=== PATIENT | female | born 1985 | race Caucasian/White ===

== ENCOUNTER 2023-04-14 15:22 | Outpatient (REF) | payer OTHER, SELFPAY ==
--- NOTE | ~2023-04-14 | US_ITS ---
EXAMINATION: US PELVIS CLINICAL INFORMATION: Lower abdominal pain; the last menstrual period was 2 weeks prior. COMPARISON: None available. TECHNIQUE: Ultrasound of the pelvis is performed using both transabdominal and transvaginal transducers along with Doppler. Transvaginal imaging is performed due to inadequate visualization transabdominally. FINDINGS: Uterus: The uterus is anteverted and anteflexed. The uterus measures 6.5 x 3.0 x 3.4 cm. The double wall endometrial thickness is 2 mm. An intrauterine device is seen, properly situated within the endometrial canal. The uterus is smooth in contour and has normal myometrial echogenicity. No visible fibroid. Adnexa: Both ovaries are visualized. There is normal color flow to the adnexa. There is no ovarian torsion. There is no pelvic ascites or fluid collection. Right ovary measures 2.4 x 1.6 x 1.4 cm, volume 2.8 mL. Left ovary measures 2.5 x 2.0 x 1.8 cm, volume 4.7 mL. The left ovary contains a 1.1 x 1.4 x 1.0 cm hemorrhagic cyst, with characteristic internal reticulated contents. US/US pelvic and transvaginal IMPRESSION: 1. An intrauterine device is seen, properly situated within the endometrial canal. 2. There is a hemorrhagic left ovarian cyst.
== END 2023-04-14 15:23 | disposition home or self-care (01) ==
LOC: HO.US 15:22
PROVIDERS: PCP Nurse Practitioner; Visit Provider Nurse Practitioner
DX: R10.30 Lower abdominal pain, unspecified (principal); R05.1 Acute cough
CPT/HCPCS: 76830; 76856

== ENCOUNTER 2023-06-01 10:32 | Outpatient (REF) | payer OTHER, SELFPAY ==
--- NOTE | ~2023-06-01 | US_ITS ---
EXAMINATION: US PELVIS CLINICAL INFORMATION: Left lower quadrant tenderness LMP: 10 days prior to this study COMPARISON: Pelvic ultrasound 04/18/2023 TECHNIQUE: Ultrasound of the pelvis is performed using both transabdominal and transvaginal transducers along with Doppler. Transvaginal imaging is performed due to inadequate visualization transabdominally. FINDINGS: Uterus: The uterus is anteverted and measures 7.6 x 3.0 x 3.9 cm. No focal fibroid. The endometrial thickness is 0.3 cm. The IUD appears in proper position. The uterus is smooth in contour and has normal myometrial echogenicity. Adnexa: Both ovaries are normal in appearance. There is normal color flow to the adnexa. There is no ovarian torsion. There is no pelvic ascites or fluid collection. Right ovary measures 2.0 x 3.0 x 2.0 cm. Volume 6.1 mL. Left ovary measures 2.7 x 2.3 x 1.8 cm. Volume 6.0 mL. 1.3 x 2.0 x 1.5 cm follicle, a normal finding is seen. No follow-up imaging recommended. US/US pelvic and transvaginal IMPRESSION: 1. Normal uterus and ovaries 2. The IUD appears in proper position.
== END 2023-06-01 10:33 | disposition home or self-care (01) ==
LOC: HO.UMASIMG 10:32
PROVIDERS: Visit Provider Nurse Practitioner
DX: R10.9 Unspecified abdominal pain (principal)
CPT/HCPCS: 76830; 76856

== ENCOUNTER 2023-06-02 17:12 | Outpatient (REF) | payer OTHER, SELFPAY ==
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
== END 2023-06-02 17:13 | disposition home or self-care (01) ==
LOC: HO.MRI 17:12
PROVIDERS: PCP Nurse Practitioner; Visit Provider Student in an Organized Health Care Education/Training Program
DX: M25.361 Other instability, right knee (principal); M25.551 Pain in right hip
CPT/HCPCS: 73721

== ENCOUNTER 2023-06-08 10:07 | Outpatient (REF) | payer OTHER, SELFPAY ==
--- NOTE | ~2023-06-08 | US_ITS ---
EXAMINATION: US RETROPERITONEAL COMPLETE (RENAL) CLINICAL INFORMATION: Right flank pain. Urates in urine. COMPARISON: None available. TECHNIQUE: Real-time imaging of the kidneys and bladder. FINDINGS: RIGHT KIDNEY: 10.2 x 4.6 x 4.7 cm (SAG x AP x TRV). The kidney is normal in size, contour, and echogenicity. Renal cortical thickness is normal. No calculi or focal parenchymal lesions. No hydronephrosis. LEFT KIDNEY: 11.0 x 7.2 x 5.7 cm (SAG x AP x TRV). The kidney is normal in size, contour, and echogenicity. Renal cortical thickness is normal. No calculi or focal parenchymal lesions. No hydronephrosis. Suboptimal visualization of the renal parenchyma due to body habitus. BLADDER: Well distended and normal. Bilateral ureteral jets are demonstrated. Prevoid bladder volume is 180 mL. Postvoid bladder volume is 0 mL. US/US retroperitoneal comp IMPRESSION: Nonhydronephrotic kidneys. Unremarkable urinary bladder.
== END 2023-06-08 10:08 | disposition home or self-care (01) ==
LOC: HO.UMASIMG 10:07
PROVIDERS: Visit Provider Nurse Practitioner
DX: R10.9 Unspecified abdominal pain (principal)
CPT/HCPCS: 76770

== ENCOUNTER 2023-08-10 06:31 | Outpatient (REF) | payer OTHER, SELFPAY ==
--- NOTE | ~2023-08-10 | US_ITS ---
EXAMINATION: US PELVIS CLINICAL INFORMATION: Increase in left lower quadrant pain and left flank pain LMP: 2 weeks ago COMPARISON: Pelvic ultrasound 06/01/2023, 04/14/2023 TECHNIQUE: Ultrasound of the pelvis is performed using both transabdominal and transvaginal transducers along with Doppler. Transvaginal imaging is performed due to inadequate visualization transabdominally. FINDINGS: Uterus: The uterus is anteverted and measures 6.5 x 3.2 x 4.0 cm. No focal fibroid. The endometrial thickness is 0.2 cm. The IUD has been removed since the prior study. Adnexa: Both ovaries are visualized. There is normal color flow to the adnexa. There is no ovarian torsion. There is no pelvic ascites or fluid collection. Right ovary measures 1.5 x 2.3 x 2.0 cm. Volume 3.5 mL. Left ovary measures 1.9 x 1.3 x 1.6 cm. Volume 2.0 mL. US/US pelvic and transvaginal IMPRESSION: Normal pelvic ultrasound.
--- NOTE | ~2023-08-10 | US_ITS ---
EXAMINATION: US RETROPERITONEAL COMPLETE (RENAL) CLINICAL INFORMATION: Increased left upper quadrant and left lower quadrant pain. COMPARISON: Renal and bladder and bladder ultrasound 06/08/2023 TECHNIQUE: Real-time imaging of the kidneys and bladder. FINDINGS: RIGHT KIDNEY: 9.4 x 4.3 x 5.1 cm (SAG x AP x TRV). The kidney is normal in size, contour, and echogenicity. Renal cortical thickness is normal. No calculi or focal parenchymal lesions. No hydronephrosis. LEFT KIDNEY: 11.2 x 5.7 x 5.7 cm (SAG x AP x TRV). The kidney is normal in size, contour, and echogenicity. Renal cortical thickness is normal. No calculi or focal parenchymal lesions. No hydronephrosis. BLADDER: Well distended and normal. Bilateral ureteral jets are demonstrated. Prevoid bladder volume is 276 mL. Postvoid bladder volume is 0 mL. US/US retroperitoneal comp IMPRESSION: Normal renal and bladder ultrasound.
== END 2023-08-10 06:32 | disposition home or self-care (01) ==
LOC: HO.UMASIMG 06:31
PROVIDERS: Visit Provider Nurse Practitioner
DX: R10.9 Unspecified abdominal pain (principal); R05.1 Acute cough; R19.7 Diarrhea, unspecified; R21 Rash and other nonspecific skin eruption; N76.0 Acute vaginitis; R10.2 Pelvic and perineal pain
CPT/HCPCS: 76770; 76830; 76856

== ENCOUNTER 2023-11-07 08:29 | Outpatient (REF) | payer OTHER, SELFPAY ==
--- NOTE | ~2023-11-07 | US_ITS ---
EXAMINATION: US RETROPERITONEAL COMPLETE (RENAL) CLINICAL INFORMATION: Hematuria. COMPARISON: Ultrasound kidneys and bladder 08/10/2023 and 06/08/2023. TECHNIQUE: Real-time imaging of the kidneys and bladder. FINDINGS: RIGHT KIDNEY: 10.7 x 4.2 x 6.3 cm (SAG x AP x TRV). The kidney is normal in size, contour, and echogenicity. Renal cortical thickness is normal. No calculi or focal parenchymal lesions. No hydronephrosis. LEFT KIDNEY: 11.1 x 6.3 x 5.1 cm (SAG x AP x TRV). The kidney is normal in size, contour, and echogenicity. Renal cortical thickness is normal. No calculi or focal parenchymal lesions. No hydronephrosis. BLADDER: Well distended and normal. Bilateral ureteral jets are demonstrated. Prevoid bladder volume is 254 mL. Postvoid bladder volume is 8 mL. US/US retroperitoneal comp IMPRESSION: Unremarkable examination.
--- NOTE | ~2023-11-07 | US_ITS ---
EXAMINATION: US PELVIS CLINICAL INFORMATION: Irregular menses, persistent right lower quadrant pain, last menstrual period one week prior. COMPARISON: August 10, 2023. TECHNIQUE: Ultrasound of the pelvis is performed using both transabdominal and transvaginal transducers along with Doppler. Transvaginal imaging is performed due to inadequate visualization transabdominally. FINDINGS: The uterus is anteverted and measures 7.4 x 3.1 x 3.8 cm. No significant free fluid. Endometrial thickness is 1 mm. Right ovary measures 1.5 x 1.7 x 1.8 cm, volume 2.3 mL. Right ovary is grossly unremarkable, although visualization is limited due to bowel gas. Left ovary measures 4.6 x 2.9 x 3.1 cm, volume 22.0 mL. Left ovarian 2.6 x 2.4 x 3.0 cm cyst appears simple, likely physiologic. There is no specific indication for additional imaging at this time. US/US pelvic and transvaginal IMPRESSION: 1. Endometrial thickness is 1 mm. 2. Left ovarian 2.6 x 2.4 x 3.0 cm cyst appears simple, likely physiologic. There is no specific indication for additional imaging at this time.
== END 2023-11-07 08:30 | disposition home or self-care (01) ==
LOC: HO.UMASIMG 08:29
PROVIDERS: Visit Provider Nurse Practitioner
DX: N21.0 Calculus in bladder (principal); L73.9 Follicular disorder, unspecified; N76.0 Acute vaginitis
CPT/HCPCS: 76770; 76830; 76856

== ENCOUNTER 2023-11-21 06:18 | Outpatient (REF) | payer OTHER, SELFPAY ==
--- NOTE | ~2023-11-21 | US_ITS ---
EXAMINATION: US ABDOMEN COMPLETE CLINICAL INFORMATION: New onset right upper quadrant pain. COMPARISON: Ultrasound kidneys and bladder 11/07/2023 and 08/10/2023. TECHNIQUE: Real-time imaging of the abdominal viscera. FINDINGS: PANCREAS: Normal. ABDOMINAL AORTA: The proximal, mid, and distal segments are normal in caliber. INFERIOR VENA CAVA: Visualized portions are normal. LIVER: Liver is enlarged measuring 18 cm with increased echogenicity suggesting hepatic steatosis. The liver contour is normal. No focal hepatic lesion. There is no intrahepatic biliary duct dilatation seen. GALLBLADDER: Normal. The gallbladder is physiologically distended without evidence of stones, sludge, polyps, wall thickening or pericholecystic fluid. Sonographic Gregory sign is negative. COMMON BILE DUCT: Normal in caliber measuring 0.4 cm in diameter. RIGHT KIDNEY: Normal. No hydronephrosis. No renal calculi or focal parenchymal lesions. The kidney measures 10.3 cm in maximum dimension. LEFT KIDNEY: Normal. No hydronephrosis. No renal calculi or focal parenchymal lesions. The kidney measures 11.3 cm in maximum dimension. SPLEEN: Normal. The spleen measures 12.0 cm in maximum dimension. FREE FLUID: None. US/US abdomen complete IMPRESSION: Liver is enlarged measuring 18 cm with increased echogenicity suggesting hepatic steatosis. Electronically signed by: Gretchen Calero MD 12/02/2023 01:22 PM EDT
== END 2023-11-21 06:19 | disposition home or self-care (01) ==
LOC: HO.UMASIMG 06:18
PROVIDERS: Visit Provider Nurse Practitioner
DX: R10.10 Upper abdominal pain, unspecified (principal)
CPT/HCPCS: 76700

== ENCOUNTER 2024-02-06 09:18 | Outpatient (REF) | payer OTHER, SELFPAY ==
--- NOTE | ~2024-02-06 | US_ITS ---
EXAMINATION: US PELVIS CLINICAL INFORMATION: Persistent pain COMPARISON: Pelvic ultrasound on 11/07/2023 TECHNIQUE: Ultrasound of the pelvis is performed using both transabdominal and transvaginal transducers along with Doppler. Transvaginal imaging is performed due to inadequate visualization transabdominally. FINDINGS: Uterus: The uterus is anteverted and measures 5.7 x 3.0 x 3.9 cm. The double wall endometrial thickness is 0.7 mm. IUD within the uterus. The uterus is smooth in contour and has normal myometrial echogenicity. No visible fibroid. Adnexa: Both ovaries are visualized. There is normal color flow to the adnexa. There is no ovarian torsion. There is no pelvic ascites or fluid collection. Right ovary measures 2.6 x 2.1 x 2.1 cm. Left ovary measures 4.5 x 4.4 x 4.5 cm. There is a 3.8 cm simple cyst. US/US pelvic and transvaginal IMPRESSION: 1. 3.8 cm simple left ovarian cyst. 2. IUD within the uterus. Electronically signed by: Jeri Jett MD 02/08/2024 12:40 PM [place]
== END 2024-02-06 09:19 | disposition home or self-care (01) ==
LOC: HO.UMASIMG 09:18
PROVIDERS: Visit Provider Nurse Practitioner
DX: R10.31 Right lower quadrant pain (principal)
CPT/HCPCS: 76830; 76856

== ENCOUNTER 2024-06-25 06:32 | Outpatient (REF) | payer OTHER, SELFPAY ==
--- NOTE | ~2024-06-25 | US_ITS ---
EXAMINATION: US PELVIS TRANSABDOMINAL AND TRANSVAGINAL HISTORY: EXCESSIVE AND FREQUENT MENSES, CHECK IUD COMPARISON: Comparison is made with the prior examination dated 02/06/2024. TECHNIQUE: Transabdominal and endovaginal real-time 2D boudreaux-scale ultrasound was performed. FINDINGS: Uterus: The uterus is normal in size, measuring 6.6 x 2.9 x 3.5 cm. Myometrium has a normal echotexture. No fibroids are identified. Endometrium: The endometrial stripe measures 3 mm in thickness. An IUD is noted in the expected position in the endometrial canal. Right ovary: The right ovary measures 2.6 x 1.6 x 1.7 cm. The right ovary is normal in size and echotexture. Left ovary: The left ovary measures 2.7 x 2.2 x 2.0 cm. The left ovary is normal in size and echotexture. Pelvic fluid: none. US/US pelvic and transvaginal IMPRESSION: Unremarkable pelvic ultrasound. IUD in the expected position in the endometrial canal. Electronically signed by: Juancarlos Daly MD 06/26/2024 07:13 AM EDT
--- OUTSIDE RECORDS SUMMARY | 2024-06-25 06:35 | XMS_ITS | Encounter Summary ---
Author Organization [facility], Address [address] [place] [address] Phone Care Team Providers Care Price Accuracy Supervisor Name Role Phone Earline Grewal NP Primary Care Provider [phone] Encounter Details Date Type Department Care Team (Late st Contact Info) Description 07/19/2023 Documentation Only [facility], [address] [place] [address] [place] [address] [place] [address] Social History Tobacco Use Types Packs/Day Years Used Date Smoking Tobacco: Never Assessed Comments Unknown Sex and Gender Information Value Date Recorded Sex Assigned at Female 09/15/2023 10:18 PM EDT Legal Sex Female 1:23 PM EDT Gender Identity Female 09/15/2023 10:18 PM EDT Sexual Orientation Straight 09/15/2023 10 :18 PM EDT documented as of this encounter Plan of Treatment Not on file documented as of this encounter Visit Diagnoses Not on filedocumented in this encounter Care Teams Price Accuracy Supervisor Relationship Specialty Start Date End Date Earline Grewal NP [address] [place] [address] PCP - General Nurse Practitioner 07/19/23 documented as of this encounter
--- OUTSIDE RECORDS SUMMARY | 2024-06-25 06:35 | XMS_ITS | Clinical Summary ---
Author Organization [facility], Address [address] [facility] [address] [place] [address] Phone Care Team Providers Care Block Inspector Name Role Phone Carmina Earline Auguste NP Primary Care Provider Allergies No known active allergies Medications dicyclomine (BENTYL) 10 MG capsule Take 10 mg by mouth 4 Active Levonorgestrel (Kyleena) 19.5 MG intrauterine device intrauterine 0 Active Active Problems Problem Noted Date Diagnosed Date Abnormal urine 09/22/2023 Immunizations Name Administration Dates Next Due Hep B, Unspecified 12/07/2011,12/20/2010, 011 Hepatitis A 09/05/2022 Influenza, MDCK, PF, Quadrivalent 01/01/2022,,12/25/2017 Influenza, Quadrivalent, Preservative Free 01/18,02/12/2016,01/18/2015 Influenza, Unspecified 01/21/2019 MMR 10/02/1991,02/01/1985 Moderna SARS-COV-2 01/01/2022 PPD Test 11/30/2016 Tdap 01/01/2022,10/18/2010 Typhoid Inactivated 09/05/2022 Family History Medical History Relation Comments Hypertension Father Relation Status Comments Father Social History Tobacco Use Types Packs/Day Years Used Date Smoking Tobacco: Never Smokeless Tobacco: Never Tobacco Cessation:Counseling Given: Not Answered Comments:NA Alcohol Use Standard Drinks/Week Comments Not Currently 0 (1 standard drink = 0.6 oz pur e alcohol) NA Comments Unknown Sex and Gender Information Value Date Recorded Sex Assigned at Female 09/15/2023 10:18 PM EDT Legal Sex Female 1:23 PM EDT Gender Identity Female 09/15/2023 10:18 PM EDT Sexual Orientation Straight 09/15/2023 10 :18 PM EDT Plan of Treatment Health Maintenance Due Date Last Done Comments Pneumococcal Vaccine: Pediat rics (0 to 5 Years) and At-Risk Patients (6 to 64 Years) (1 of 2 - PCV) 10/28/1989 Hepatitis B Vaccine (1 of 3 - 19+ 3-dose series) 10/28/2002 12/07/2011, 12/20/2010, 11/15/2010 Influenza Vaccine (#1) 2023 , 01/18/2021, 01/21/2019, Additional history exists Insurance [employer] Care Teams Block Inspector Relationship Specialty Start Date End Date Earline Grewal NP [address] [place] [address] PCP - General Nurse Practitioner 07/19/23
--- OUTSIDE RECORDS SUMMARY | 2024-06-25 06:35 | XMS_ITS | Clinical Summary ---
Author Organization [facility] Address [address] [place] [id number] Care Team Providers Care Supply Person Name Role Phone Unavailable Primary Care Provider Unavailabl e Social History Tobacco Use Types Packs/Day Years Used Date Smoking Tobacco: Never Assessed Comments Unknown Sex and Gender Information Value Date Recorded Sex Assigned at Not on file Legal Sex Female 1:53 AM EST Gender Identity Not on file Sexual Orientation Not on file Plan of Treatment Not on file
== END 2024-06-25 06:33 | disposition home or self-care (01) ==
LOC: HO.UMASIMG 06:32
PROVIDERS: Visit Provider Nurse Practitioner
DX: N92.1 Excessive and frequent menstruation with irregular cycle (principal)
CPT/HCPCS: 76830; 76856

== ENCOUNTER → 2024-06-25 14:00 | Outpatient (BNV) | payer OTHER, SELFPAY | PROVIDERS: Visit Provider Radiology Diagnostic Radiology | DX: N92.6 Irregular menstruation, unspecified (principal) | CPT/HCPCS: 76830; 76856 ==

== ENCOUNTER 2024-09-03 08:29 | Outpatient (REF) | payer OTHER, SELFPAY ==
--- NOTE | ~2024-09-03 | US_ITS ---
EXAMINATION: US PELVIS TRANSABDOMINAL AND TRANSVAGINAL HISTORY: PELVIC PAIN COMPARISON: Comparison is made with the prior examination dated 06/25/2024. TECHNIQUE: Transabdominal and endovaginal real-time 2D boudreaux-scale ultrasound was performed. FINDINGS: Uterus: The uterus is normal in size, measuring 7.2 x 2.7 x 3.9 cm. Myometrium has a normal echotexture. No fibroids are identified. Endometrium: The endometrial stripe measures 2 mm in thickness. Again seen is an IUD in the expected position in the endometrial cavity. Right ovary: The right ovary measures 2.3 x 1.8 x 1.6 cm. The right ovary is normal in size and echotexture. Left ovary: The left ovary measures 3.0 x 2.5 x 1.7 cm. The left ovary is normal in size and echotexture. Pelvic fluid: none. US/US pelvic and transvaginal IMPRESSION: Unremarkable pelvic ultrasound. IUD in the expected position in the endometrial cavity. Electronically signed by: Juancarlos Daly MD 09/03/2024 03:14 PM EDT
--- OUTSIDE RECORDS SUMMARY | 2024-09-03 08:47 | XMS_ITS | Clinical Summary ---
Author Organization [facility], Address [address] [facility] [address] [place] [address] Phone Care Team Providers Care Color Blender Name Role Phone Earline Grewal NP Primary Care Provider [phone] Allergies No known active allergies Medications dicyclomine (BENTYL) 10 MG capsule Take 10 mg by mouth 4 Active Levonorgestrel (Kyleena) 19.5 MG intrauterine device intrauterine 0 Active Active Problems Problem Noted Date Diagnosed Date Abnormal urine 09/22/2023 Immunizations Immunization Administration Dates Next Due Hep B, Unspecified [...] Health Maintenance Due Date Last Done Comments Hepatitis B Vaccine (1 of 3 - 19+ 3-dose series) 10/28/2002 12/07/2011, 12/20/2010, 11/15/2010 Pneumococcal Vaccine: Peds ( 0 to 5 Years) and At-Risk Patients (6 to 49 Years) (1 of 2 - PCV) 10/28/2002 Influenza Vaccine (Season Ended) 2024 01/01/2022, 01/18/2021, 01/21/2019, Additional history exists Insurance [employer] Care Teams Color Blender Relationship Specialty Start Date End Date Earline Grewal NP [address] [place] [address] PCP - General Nurse Practitioner 07/19/23
== END 2024-09-03 08:30 | disposition home or self-care (01) ==
LOC: HO.UMASIMG 08:29
PROVIDERS: Visit Provider Nurse Practitioner
DX: R10.30 Lower abdominal pain, unspecified (principal)
CPT/HCPCS: 76830; 76856

== ENCOUNTER → 2024-09-03 14:15 | Outpatient (BNV) | payer OTHER, SELFPAY | PROVIDERS: Visit Provider Radiology Diagnostic Radiology | DX: R10.2 Pelvic and perineal pain (principal) | CPT/HCPCS: 76830; 76856 ==